=== PATIENT | female | born 1955 | race Hispanic/Latino ===

== ENCOUNTER 2016-06-15 09:33 | Day surgery (SDC) | payer BC ==
[2016-06-15 10:46] LABS: INR 1.29 (0.87-1.13)
[2016-06-15 10:47] LABS: Partial Thromboplastin Time 35.4 Sec. (24.2-36.6)
[2016-06-15 12:19] VITALS: BP 119/82
--- NOTE | 2016-06-15 12:19 | Short Stay Summary ---
Short Stay Documentation Date of service: 06/15/16 - History Principal diagnosis: Cirrhosis Past Medical History: hepatitis, other (cirrhosis) Past Surgical History: Other (multiple prior paracentesis) Social history: no significant social history - Allergies and Medications Current Medications: Allergies Sulfa (Sulfonamide Antibiotics) Allergy (Intermediate, Verified 12/25/13 09:08) Swelling tetanus toxoid, adsorbed Allergy (Intermediate, Verified 12/25/13 09:08) Rash Home Medications Medication Instructions Recorded Confirmed Last Taken Type Multivitamin [Multi Vitamin Daily] 1 each PO QDAY 12/25/13 06/15/16 06/14/16 History Potassium Chloride [Klor-Con 8] 99 mg PO QDAY 10/03/15 06/15/16 06/14/16 History Furosemide [Lasix TAB] 40 mg PO QDAY 10/31/15 06/15/16 06/14/16 History - Physical exam General appearance: no acute distress Integumentary: no rash HEENT: Atraumatic, PERRLA Lungs: Normal air movement Breasts: deferred Gastrointestinal: normal, no tenderness, distended Female Genitourinary: deferred Rectal Exam: deferred Extremities: no ischemia Neurological: Normal gait, Normal speech - Brief post op/procedure progress note Date of procedure: 06/15/16 Pre-op diagnosis: Ascites Post-op diagnosis: same Procedure: US guided paracentesis Anesthesia: local Surgeon: PAULY TORRES Estimated blood loss: minimal Pathology: none Condition: stable - Disposition Condition at discharge: Good Disposition: DISCHARGED TO HOME OR SELFCARE Short Stay Discharge Plan Activity: advance as tolerated Weight Bearing Status: Weight Bear as Tolerated Diet: regular Wound: keep clean and dry, per your surgeon's advice Follow up with: YEN LOVE MD [Primary Care Provider] - 7 Days
--- NOTE | 2016-06-15 12:35 | Ultrasound Report ---
EXAM: ULTRASOUND GUIDED PARACENTESIS CLINICAL INDICATION: HEPATITIS, CIRRHOSIS, ASCITES DATE: 06/15/2016 PROCEDURE: Following an explanation of the risks, benefits and alternatives; written informed consent was obtained. The patient was brought to the ultrasound suite and placed in supine position on the stretcher. Poor quadrant ultrasound of the abdomen was performed and a moderate amount of ascites is present. An appropriate access site was chosen in the left lower quadrant in the patient's left lower abdomen was prepped and draped in usual sterile fashion. 1% lidocaine was used to anesthesia. Under ultrasound guidance, a 5 [place] Yueh needle was advanced into the ascitic fluid. Images were saved to document appropriate positioning of the needle tip. The trocar was removed and a 3.0 L of clear yellow ascitic fluid was aspirated. A sample was sent for laboratory analysis. The Yueh needle was then removed and hemostasis achieved using manual compression. A sterile dressing was applied. The patient tolerated the procedure well. There were no immediate post procedure complications. IMPRESSION: Ultrasound guided paracentesis with 3.0 L of clear yellow ascitic fluid aspirated. Samples were sent for laboratory analysis.
== END 2016-06-15 12:30 | disposition home or self-care (01) ==
LOC: OPU 09:33 → EDSTATUS 12:00 → OPU 12:30
PROVIDERS: ATTEND Radiology Diagnostic Radiology
DX: R18.8 Other ascites (principal); K74.60 Unspecified cirrhosis of liver; K75.9 Inflammatory liver disease, unspecified
CPT/HCPCS: 36415; 49083; 85610; 85730; 87116

== ENCOUNTER 2016-09-21 11:59 | Day surgery (SDC) | payer BC ==
[2016-09-21 13:29] LABS: INR 1.28 (0.87-1.13)
[2016-09-21 13:31] LABS: Partial Thromboplastin Time 35.2 Sec. (24.2-36.6)
--- NOTE | 2016-09-21 14:20 | Short Stay Summary ---
Short Stay Documentation Date of service: 09/21/16 - History Principal diagnosis: Cirrhosis, ascites Past Medical History: hepatitis Past Surgical History: Other (multiple prior paracentesis) Social history: no significant social history, - Allergies and Medications Current Medications: Allergies Sulfa (Sulfonamide Antibiotics) Allergy (Intermediate, Verified 12/25/13 09:08) Swelling tetanus toxoid, adsorbed Allergy (Intermediate, Verified 12/25/13 09:08) Rash Home Medications Medication Instructions Recorded Confirmed Last Taken Type Multivitamin [Multi Vitamin Daily] 1 each PO QDAY 12/25/13 09/21/16 09/20/16 History Furosemide [Lasix TAB] 40 mg PO QDAY 10/31/15 09/21/16 09/20/16 History Spironolactone [Spironolactone] 100 mg PO PRN PRN 07/27/16 09/21/16 09/20/16 History Potassium Gluconate 550 mg PO DAILY 09/21/16 09/21/16 09/20/16 History - Physical exam General appearance: no acute distress Integumentary: no rash HEENT: Atraumatic Lungs: Normal air movement Breasts: deferred Gastrointestinal: normal, no tenderness, distended Female Genitourinary: deferred Rectal Exam: deferred Extremities: no ischemia Neurological: Normal gait, Normal speech - Brief post op/procedure progress note Date of procedure: 09/21/16 Pre-op diagnosis: Ascites Post-op diagnosis: same Procedure: US guided paracentesis Anesthesia: local Surgeon: PAULY TORRES Estimated blood loss: none Specimen disposition: to lab Condition: stable - Disposition Condition at discharge: Good Disposition: DISCHARGED TO HOME OR SELFCARE Short Stay Discharge Plan Activity: advance as tolerated Weight Bearing Status: Weight Bear as Tolerated Diet: regular Wound: keep clean and dry, per your surgeon's advice Follow up with: YEN LOVE MD [Primary Care Provider] - 7 Days
[2016-09-21 14:41] VITALS: BP 115/75
--- NOTE | 2016-09-21 14:54 | Ultrasound Report ---
EXAM: ULTRASOUND GUIDED PARACENTESIS CLINICAL INDICATION: ASCITES DATE: 09/21/2016 PROCEDURE: Following an explanation of the risks, benefits and alternatives; written informed consent was obtained. The patient was brought to the ultrasound suite and placed in supine position on the stretcher. 4 quadrant ultrasound demonstrated a moderate amount of ascites. An appropriate access site was chosen along the midline in the right lower quadrant and the patient's lower abdomen was prepped and draped in the usual sterile fashion. 1% lidocaine was used for anesthesia. Under ultrasound guidance, a 5 Dive[place] CodeEvaleh needle was advanced into the ascitic fluid. The trocar was removed. There was prompt return of clear yellow serous fluid. A total of 4060 mL's of clear yellow ascitic fluid was aspirated. Samples were sent for laboratory analysis. The needle was removed and hemostasis achieved using the manual compression. The patient tolerated the procedure well, there were no immediate post procedure complications IMPRESSION: US guided paracentesis with 4060 ml's of clear yellow fluid aspirated. A sample was sent for laboratory analysis.
== END 2016-09-21 14:45 | disposition home or self-care (01) ==
LOC: OPU 11:59 → EDSTATUS 12:00 → OPU 14:45
PROVIDERS: ATTEND Radiology Diagnostic Radiology
DX: R18.8 Other ascites (principal); K74.60 Unspecified cirrhosis of liver
CPT/HCPCS: 36415; 49083; 85610; 85730; 87116

== ENCOUNTER 2016-12-10 11:13 | Day surgery (SDC) | payer BC ==
[2016-12-10 12:28] LABS: INR 1.27 (0.87-1.13)
[2016-12-10 12:29] LABS: Partial Thromboplastin Time 31.6 Sec. (24.2-36.6)
[2016-12-10 12:34] VITALS: BP 124/71
--- NOTE | 2016-12-10 13:04 | Short Stay Summary ---
Short Stay Documentation Date of service: 12/10/16 - History Principal diagnosis: Ascites Past Medical History: hepatitis, other (recurrant ascites) Past Surgical History: Other (multiple prior paracentesis) Social history: no significant social history - Allergies and Medications Current Medications: Allergies Sulfa (Sulfonamide Antibiotics) Allergy (Intermediate, Verified 12/25/13 09:08) Swelling tetanus toxoid, adsorbed Allergy (Intermediate, Verified 12/25/13 09:08) Rash Home Medications Medication Instructions Recorded Confirmed Last Taken Type Multivitamin [Multi Vitamin Daily] 1 each PO QDAY 12/25/13 12/10/16 12/09/16 History 1 tab Furosemide [Lasix TAB] 40 mg PO QDAY 10/31/15 12/10/16 12/09/16 History 40mg Spironolactone [Spironolactone] 100 mg PO PRN PRN 07/27/16 12/10/16 12/09/16 History 100mg Potassium Gluconate 550 mg PO DAILY 09/21/16 12/10/16 12/09/16 History 550mg - Physical exam General appearance: no acute distress Integumentary: no rash HEENT: Atraumatic Lungs: Normal air movement Breasts: deferred Gastrointestinal: normal, no tenderness, no distended Female Genitourinary: deferred Rectal Exam: deferred Extremities: no ischemia, No edema Neurological: Normal gait, Normal speech - Brief post op/procedure progress note Date of procedure: 12/10/16 Pre-op diagnosis: Ascites Post-op diagnosis: same Procedure: 4 quadrant US of abdomen, only minimal ascites Anesthesia: local Surgeon: PAULY TORRES Estimated blood loss: none Pathology: none Condition: stable - Disposition Condition at discharge: Good Disposition: DC-01 TO HOME OR SELFCARE Short Stay Discharge Plan Activity: advance as tolerated Weight Bearing Status: Weight Bear as Tolerated Diet: regular Wound: keep clean and dry, per your surgeon's advice Follow up with: YEN LOVE MD [Primary Care Provider] - 7 Days
--- NOTE | 2016-12-10 13:05 | Operative Report ---
Operative Report Operative Report: Four quadrant ultrasound of the abdomen was performed which demonstrates only minimal amount of ascites. The abdomen is nontender. A paracentesis was therefore not performed.
--- NOTE | 2016-12-12 07:43 | Ultrasound Report ---
ULTRASOUND ABDOMEN LIMITED History: Ascites. Findings: Transabdominal ultrasound imaging of all 4 quadrants of the abdomen demonstrate small ascites which has decreased significantly since 09/21/16 exam. Impression: Small ascites.
== END 2016-12-10 13:06 | disposition home or self-care (01) ==
LOC: OPU 11:13 → EDSTATUS 12:00 → OPU 13:06
PROVIDERS: ATTEND Radiology Diagnostic Radiology
DX: R18.8 Other ascites (principal); Z86.19 Personal history of other infectious and parasitic diseases; Z98.890 Other specified postprocedural states; Z88.2 Allergy status to sulfonamides; Z88.7 Allergy status to serum and vaccine; Z53.8 Procedure and treatment not carried out for other reasons
CPT/HCPCS: 36415; 49083; 76705; 85610; 85730

== ENCOUNTER 2017-01-25 08:57 | Day surgery (SDC) | payer BC ==
[2017-01-25 10:14] LABS: INR 1.23 (0.87-1.13); Partial Thromboplastin Time 35.9 Sec. (24.2-36.6)
--- NOTE | 2017-01-25 11:52 | History and Physical Report ---
History of Present Illness Date of examination: 01/25/17 Chief complaint: abdominal distention Medications and Allergies Allergies Allergy/AdvReac Type Severity Reaction Status Date / Time Sulfa (Sulfonamide Allergy Intermediate Swelling Verified 12/25/13 09:08 Antibiotics) tetanus toxoid, adsorbed Allergy Intermediate Rash Verified 12/25/13 09:08 Home Medications Medication Instructions Recorded Confirmed Last Taken Type Multivitamin [Multi Vitamin Daily] 1 each PO QDAY 12/25/13 01/25/17 01/24/17 History Furosemide [Lasix TAB] 40 mg PO QDAY 10/31/15 01/25/17 01/24/17 History Spironolactone [Spironolactone] 100 mg PO PRN PRN 07/27/16 01/25/17 01/24/17 History Potassium Gluconate 550 mg PO DAILY 09/21/16 01/25/17 01/24/17 History Exam Vital Signs Temp Pulse Resp BP Pulse Ox 98.9 F 101 H 18 123/77 96 01/25/17 09:36 01/25/17 09:36 01/25/17 09:36 01/25/17 09:36 01/25/17 09:36
--- NOTE | 2017-01-25 11:56 | Procedure Note ---
Date of procedure: 01/25/17 Pre-op diagnosis: ascites Post-op diagnosis: same Procedure: paracentesis Findings: straw colored fluid Anesthesia: local Surgeon: RUBIN SCHMITT Estimated blood loss: none Specimen disposition: discarded Condition: stable Disposition: observation
--- NOTE | 2017-01-25 11:58 | Ultrasound Report ---
Ultrasound-guided paracentesis: Imaging of the abdomen demonstrated a relatively small fluid accumulation predominately in the lower abdomen. An approach site was chosen in the left lower quadrant. The skin was cleansed and draped. 1% lidocaine used for local anesthesia. Through a small skin a 5 Indian [employer] Therapeuticseh catheter was successfully placed into the fluid pocket. A total of 1.9 L of straw-colored fluid was removed without complication. The patient was sent for observation prior to discharge.
[2017-01-25 15:00] VITALS: BP 119/73
== END 2017-01-25 11:55 | disposition home or self-care (01) ==
LOC: CATHLABREC 08:57 → EDSTATUS 09:00 → CATHLABREC 11:55
PROVIDERS: ATTEND Radiology Diagnostic Radiology
DX: R18.8 Other ascites (principal); Z88.2 Allergy status to sulfonamides; Z88.7 Allergy status to serum and vaccine
CPT/HCPCS: 36415; 49083; 85610; 85730

== ENCOUNTER 2017-02-21 10:57 | Day surgery (SDC) | payer BC ==
[2017-02-21 12:57] VITALS: BP 141/79
[2017-02-21] MEDS ORDERED: ALBURX 25% (ALBUMIN) IV PRN (13:08)
--- NOTE | 2017-02-21 13:09 | Short Stay Summary ---
Short Stay Documentation Date of service: 02/21/17 - History Principal diagnosis: ascites - Allergies and Medications Current Medications: Allergies Sulfa (Sulfonamide Antibiotics) Allergy (Intermediate, Verified 12/25/13 09:08) Swelling tetanus toxoid, adsorbed Allergy (Intermediate, Verified 12/25/13 09:08) Rash Home Medications Medication Instructions Recorded Confirmed Last Taken Type Multivitamin [Multi Vitamin Daily] 1 each PO QDAY 12/25/13 02/21/17 02/20/17 History 1 tab Furosemide [Lasix TAB] 40 mg PO QDAY 10/31/15 02/21/17 02/20/17 History 40mg Spironolactone [Spironolactone] 100 mg PO PRN PRN 07/27/16 02/21/17 02/20/17 History 100mg Potassium Gluconate 550 mg PO DAILY 09/21/16 02/21/17 02/20/17 History 550mg - Physical exam General appearance: no acute distress Gastrointestinal: normoactive bowel sounds, distended - Brief post op/procedure progress note Date of procedure: 02/21/17 Pre-op diagnosis: ascites Post-op diagnosis: same Procedure: US paracentesis Anesthesia: local Surgeon: ISREAL SUAREZ Estimated blood loss: none Pathology: none Specimen disposition: discarded Condition: stable - Disposition Condition at discharge: Good Disposition: DC-01 TO HOME OR SELFCARE Short Stay Discharge Plan Follow up with: YEN LOVE MD [Primary Care Provider] - 7 Days
--- NOTE | 2017-02-21 13:58 | Ultrasound Report ---
ULTRASOUND PARACENTESIS History: Ascites. Description of procedure: Informed consent was obtained. Sterile technique was utilized. 1% lidocaine for skin anesthesia. Using ultrasound guidance, a 5 Frisian centesis needle was advanced into the peritoneal space. There was spontaneous return of clear yellow fluid. 2.5 L of fluid was aspirated and discarded. No complications. Impression: Successful ultrasound guided paracentesis as described.
== END 2017-02-21 13:05 | disposition home or self-care (01) ==
LOC: CATHLABREC 10:57 → EDSTATUS 12:00 → CATHLABREC 13:05
PROVIDERS: ATTEND Surgery Vascular Surgery
DX: R18.8 Other ascites (principal)
CPT/HCPCS: 49083

== ENCOUNTER 2017-06-17 10:35 | Day surgery (SDC) | payer BC ==
[2017-06-17 11:13] VITALS: BP 123/78
[2017-06-17 11:54] LABS: INR 1.19 (0.87-1.13)
[2017-06-17 11:55] LABS: Partial Thromboplastin Time 38.8 Sec. (24.2-36.6)
--- NOTE | 2017-06-17 12:59 | Short Stay Summary ---
Short Stay Documentation Date of service: 06/17/17 - History Principal diagnosis: Cirrhosis, ascites Past Medical History: other (Cirrhosis) Past Surgical History: Other (multiple paracentesis) Social history: no significant social history, lives with family - Allergies and Medications Current Medications: Allergies Sulfa (Sulfonamide Antibiotics) Allergy (Intermediate, Verified 12/25/13 09:08) Swelling tetanus toxoid, adsorbed Allergy (Intermediate, Verified 12/25/13 09:08) Rash Home Medications Medication Instructions Recorded Confirmed Last Taken Type Multivitamin [Multi Vitamin Daily] 1 each PO QDAY 12/25/13 06/17/17 06/16/17 History 1 Furosemide [Lasix TAB] 40 mg PO QDAY 10/31/15 06/17/17 06/16/17 History 40mg Spironolactone [Spironolactone] 100 mg PO PRN PRN 07/27/16 06/17/17 06/16/17 History 100mg Potassium Gluconate 550 mg PO DAILY 09/21/16 06/17/17 06/16/17 History 550mg Gabapentin [Neurontin] 300 mg PO QHS 06/17/17 06/17/17 06/16/17 History 300mg - Physical exam General appearance: no acute distress Integumentary: no rash HEENT: Atraumatic Lungs: Normal air movement Breasts: deferred Heart: Regular rate Gastrointestinal: distended, other (ascitic fluid wave) Female Genitourinary: deferred Rectal Exam: deferred Extremities: no ischemia Neurological: Normal gait, Normal speech - Brief post op/procedure progress note Date of procedure: 06/17/17 Pre-op diagnosis: Cirrhosis, ascites Post-op diagnosis: same Procedure: US guided paracentesis Anesthesia: local Surgeon: PAULY TORRES Estimated blood loss: minimal Pathology: none Specimen disposition: to lab - Disposition Condition at discharge: Good Disposition: DC-01 TO HOME OR SELFCARE Short Stay Discharge Plan Activity: advance as tolerated Weight Bearing Status: Weight Bear as Tolerated Diet: regular Wound: keep clean and dry, per your surgeon's advice Follow up with: YEN LOVE MD [Primary Care Provider] - 7 Days
--- NOTE | 2017-06-17 14:05 | Ultrasound Report ---
EXAM: ULTRASOUND-GUIDED PARACENTESIS CLINICAL INDICATION: ASCITES DATE: 06/17/2017 PROCEDURE: Following an explanation of the risks, benefits and alternatives; written informed consent was obtained. The procedure was performed at bedside in the ultrasound suite. Four-quadrant ultrasound of the abdomen demonstrates a moderate amount of ascites. An appropriate access site was chosen one the right lower quadrant. Patient's right lower abdomen was prepped and draped in the usual sterile fashion. 1% lidocaine was used to anesthesia. Under ultrasound guidance, a 5 [place] Yueh needle was advanced into the ascitic fluid. An ultrasound image was obtained to document appropriate positioning. The trocar was removed and a total of 3 L of clear yellow ascitic fluid was aspirated. A sample sent for laboratory analysis. At the completion of the aspiration, the Yueh needle was removed and hemostasis achieved using minimal compression. Sterile dressing was applied. The patient tolerated the procedure well. There were no immediate post procedure complications. IMPRESSION: 1) Ultrasound paracentesis with 3 L of clear yellow ascitic fluid aspirated. Sample was sent for laboratory analysis.
== END 2017-06-17 13:40 | disposition home or self-care (01) ==
LOC: CATHLABREC 10:35 → EDSTATUS 12:00 → CATHLABREC 13:40
PROVIDERS: ATTEND Radiology Diagnostic Radiology
DX: R18.8 Other ascites (principal); K74.60 Unspecified cirrhosis of liver; Z88.2 Allergy status to sulfonamides; Z88.7 Allergy status to serum and vaccine
CPT/HCPCS: 36415; 49083; 85610; 85730; 87116

== ENCOUNTER 2017-07-10 10:09 | Day surgery (SDC) | payer BC ==
--- NOTE | 2017-07-10 11:55 | Short Stay Summary ---
Short Stay Documentation Date of service: 07/10/17 - History Principal diagnosis: Cirrhosis Past Medical History: hepatitis, liver disease Past Surgical History: bowel surgery Social history: no significant social history - Allergies and Medications Current Medications: Allergies Sulfa (Sulfonamide Antibiotics) Allergy (Intermediate, Verified 12/25/13 09:08) Swelling tetanus toxoid, adsorbed Allergy (Intermediate, Verified 12/25/13 09:08) Rash Home Medications Medication Instructions Recorded Confirmed Last Taken Type Multivitamin [Multi Vitamin Daily] 1 each PO QDAY 12/25/13 07/10/17 07/09/17 History Furosemide [Lasix TAB] 40 mg PO QDAY 10/31/15 07/10/17 07/09/17 History Spironolactone [Spironolactone] 100 mg PO DAILY 07/27/16 07/10/17 07/09/17 History Potassium Gluconate 550 mg PO DAILY 09/21/16 07/10/17 07/09/17 History Gabapentin [Neurontin] 300 mg PO QHS 06/17/17 07/10/17 07/09/17 History - Physical exam General appearance: no acute distress Integumentary: no rash HEENT: Atraumatic Lungs: Normal air movement Breasts: deferred Gastrointestinal: normal, distended Female Genitourinary: deferred Extremities: no ischemia Neurological: Normal gait, Normal speech - Brief post op/procedure progress note Date of procedure: 07/10/17 Pre-op diagnosis: Cirrhosis Post-op diagnosis: same Procedure: US guided paracentesis Anesthesia: local Surgeon: PAULY TORRES Estimated blood loss: none Specimen disposition: to lab Condition: stable - Disposition Condition at discharge: Good Disposition: DC-01 TO HOME OR SELFCARE Short Stay Discharge Plan Activity: advance as tolerated Weight Bearing Status: Weight Bear as Tolerated Diet: regular Wound: keep clean and dry, per your surgeon's advice Follow up with: YEN LOVE MD [Primary Care Provider] - 7 Days
[2017-07-10 12:27] VITALS: BP 114/74
--- NOTE | 2017-07-15 09:20 | Operative Report ---
Operative Report Operative Report: See report in PACS
--- NOTE | 2017-07-15 12:50 | Ultrasound Report ---
EXAM: ULTRASOUND GUIDED PARACENTESIS CLINICAL INDICATION: ASCITES DATE: 07/10/2017 PROCEDURE: Following an examination of the risks, benefits and alternatives; written informed consent was obtained. The patient was to the ultrasound suite and for quadrant ultrasound of the abdomen was performed which demonstrated a moderate amount of ascites. An appropriate access site was chosen along the midline in the lower quadrant. Patient's lower abdomen was prepped and draped in the usual sterile fashion. 1% lidocaine was used for anesthesia. Under ultrasound guidance, a 5 [place] Yueh needle was advanced into the ascitic fluid. An initial same to document appropriate positioning. The trocar was removed and a total of 3.1 L of clear yellow ascitic fluid aspirated. A sample sent for laboratory analysis. The Yueh needle was then removed and hemostasis achieved at the skin surface using manual compression. A sterile dressing was applied. The patient tolerated the procedure well. There were no immediate post procedure complications. IMPRESSION: 1) Ultrasound-guided paracentesis with 3.1 L of clear yellow ascitic fluid aspirated. Samples sent for laboratory analysis.
== END 2017-07-10 12:30 | disposition home or self-care (01) ==
LOC: CATHLABREC 10:09 → EDSTATUS 12:00 → CATHLABREC 12:30
PROVIDERS: ATTEND Radiology Diagnostic Radiology
DX: R18.8 Other ascites (principal); K74.60 Unspecified cirrhosis of liver; Z98.890 Other specified postprocedural states; Z88.2 Allergy status to sulfonamides; Z88.7 Allergy status to serum and vaccine; Z79.899 Other long term (current) drug therapy
CPT/HCPCS: 49083; 87116

== ENCOUNTER 2017-08-14 10:02 | Day surgery (SDC) | payer BC ==
--- NOTE | 2017-08-14 10:48 | Short Stay Summary ---
Short Stay Documentation Date of service: 08/14/17 - History Principal diagnosis: Cirrhosis, ascites Past Medical History: hepatitis Past Surgical History: Other (multiple prior paracentesis) Social history: no significant social history - Allergies and Medications Current Medications: Allergies Sulfa (Sulfonamide Antibiotics) Allergy (Intermediate, Verified 12/25/13 09:08) Swelling tetanus toxoid, adsorbed Allergy (Intermediate, Verified 12/25/13 09:08) Rash Home Medications Medication Instructions Recorded Confirmed Last Taken Type Multivitamin [Multi Vitamin Daily] 1 each PO QDAY 12/25/13 08/14/17 08/13/17 History 1 Furosemide [Lasix TAB] 40 mg PO QDAY 10/31/15 08/14/17 08/13/17 History 40mg Spironolactone 100 mg PO DAILY 07/27/16 08/14/17 08/13/17 History 100mg Potassium Gluconate 550 mg PO DAILY 09/21/16 08/14/17 08/13/17 History 550 mg Gabapentin [Neurontin] 300 mg PO QHS 06/17/17 08/14/17 08/13/17 History 300mg - Physical exam General appearance: no acute distress Integumentary: no rash, no growths HEENT: Atraumatic Lungs: Normal air movement Breasts: deferred Heart: Regular rate Gastrointestinal: no tenderness, distended Female Genitourinary: deferred Rectal Exam: deferred Extremities: no ischemia Neurological: Normal gait, Normal speech - Brief post op/procedure progress note Date of procedure: 08/14/17 Pre-op diagnosis: aascites cirrhosis Post-op diagnosis: same Procedure: US guided paracentesis Anesthesia: local Surgeon: PAULY TORRES Estimated blood loss: minimal Specimen disposition: to lab Condition: stable - Disposition Condition at discharge: Good Disposition: DC-01 TO HOME OR SELFCARE Short Stay Discharge Plan Activity: advance as tolerated Weight Bearing Status: Weight Bear as Tolerated Diet: regular Wound: keep clean and dry, per your surgeon's advice Follow up with: YEN LOVE MD [Primary Care Provider] - 7 Days
[2017-08-14 11:16] LABS: INR 1.26 (0.87-1.13)
[2017-08-14 11:17] LABS: Partial Thromboplastin Time 36.7 Sec. (24.2-36.6)
[2017-08-14 12:22] VITALS: BP 117/63
--- NOTE | 2017-08-16 13:27 | Operative Report ---
Operative Report Operative Report: See report in PACS
--- NOTE | 2017-08-19 10:28 | Ultrasound Report ---
EXAM: ULTRASOUND GUIDED PARACENTESIS CLINICAL INDICATION: ASCITES, CIRRHOSIS DATE: 08/14/2017 PROCEDURE: Following an explanation of the risks, benefits and alternatives; written informed consent was obtained. Initial four quadrant ultrasound of the abdomen was performed which demonstrated a moderate amount of ascites. Next a site was chosen in the left lower quadrant and the patient's abdomen prepped and draped in the usual sterile fashion. 1% lidocaine was used for anesthesia. Under ultrasound guidance, a 5 [place] Yueh needle was advanced into the ascitic fluid. Ultrasound image was saved for documentation. The trocar was removed and a total of 3.7 L of clear yellow ascitic fluid was aspirated. A sample was sent for laboratory analysis. The Yueh needle was removed and hemostasis achieved using manual compression. A sterile dressing was applied. The patient tolerated the procedure well. There was no immediate post procedure complications. IMPRESSION: 1) Ultrasound guided paracentesis with 3.7 L of clear yellow ascitic fluid aspirated. A sample was sent for laboratory analysis.
== END 2017-08-14 12:27 | disposition home or self-care (01) ==
LOC: CATHLABREC 10:02 → US 10:02 → EDSTATUS 12:00 → CATHLABREC 12:27
PROVIDERS: ATTEND Radiology Diagnostic Radiology
DX: K70.31 Alcoholic cirrhosis of liver with ascites (principal); Z88.2 Allergy status to sulfonamides; Z88.7 Allergy status to serum and vaccine
CPT/HCPCS: 36415; 49083; 85610; 85730; 87116

== ENCOUNTER 2017-08-28 10:48 | Day surgery (SDC) | payer BC ==
[2017-08-28] MEDS ORDERED: ALBURX 25% (ALBUMIN) IV PRN (13:09)
--- NOTE | 2017-08-28 13:09 | Short Stay Summary ---
Short Stay Documentation Date of service: 08/28/17 - History Principal diagnosis: ascites H&P: obtained from office - Allergies and Medications Current Medications: Allergies Sulfa (Sulfonamide Antibiotics) Allergy (Intermediate, Verified 12/25/13 09:08) Swelling tetanus toxoid, adsorbed Allergy (Intermediate, Verified 12/25/13 09:08) Rash Home Medications Medication Instructions Recorded Confirmed Last Taken Type Multivitamin [Multi Vitamin Daily] 1 each PO HS 12/25/13 08/28/17 08/27/17 History 1 tab Furosemide [Lasix TAB] 40 mg PO QDAY 10/31/15 08/28/17 08/28/17 07:30 History Spironolactone 100 mg PO DAILY 07/27/16 08/28/17 08/28/17 07:30 History 100mg Gabapentin [Neurontin] 300 mg PO QHS 06/17/17 08/28/17 08/27/17 History 300mg Potassium 99 mg PO HS 08/28/17 08/28/17 08/27/17 History 99mg - Physical exam General appearance: no acute distress Gastrointestinal: distended - Brief post op/procedure progress note Date of procedure: 08/28/17 Pre-op diagnosis: ascites Post-op diagnosis: same Procedure: us paracentesis Anesthesia: local Surgeon: ISREAL SUAREZ Estimated blood loss: none Pathology: none Specimen disposition: discarded Condition: stable - Disposition Condition at discharge: Good Disposition: DC-01 TO HOME OR SELFCARE Short Stay Discharge Plan Follow up with: YEN LOVE MD [Primary Care Provider] - 7 Days
[2017-08-28 13:30] VITALS: BP 109/47
--- NOTE | 2017-08-28 14:22 | Ultrasound Report ---
ULTRASOUND PARACENTESIS History: Ascites. Description of procedure: Informed consent was obtained. Sterile technique was utilized. 1% lidocaine for skin anesthesia. Using ultrasound guidance, a 5 Setswana centesis needle was advanced into the left lower quadrant peritoneal space. There was spontaneous return of clear yellow fluid. 3 L of fluid was aspirated and discarded. No complications. Impression: Successful ultrasound-guided paracentesis.
== END 2017-08-28 13:35 | disposition home or self-care (01) ==
LOC: CATHLABREC 10:48 → US 10:48 → EDSTATUS 12:00 → CATHLABREC 13:35
PROVIDERS: ATTEND Radiology Diagnostic Radiology
DX: R18.8 Other ascites (principal); Z88.2 Allergy status to sulfonamides; Z88.7 Allergy status to serum and vaccine
CPT/HCPCS: 49083

== ENCOUNTER 2017-09-18 09:12 | Day surgery (SDC) | payer BC ==
[2017-09-18 09:45] VITALS: BP 138/73
[2017-09-18 10:26] LABS: INR 1.27 (0.87-1.13)
--- NOTE | 2017-09-18 11:08 | Short Stay Summary ---
Short Stay Documentation Date of service: 09/18/17 - History Principal diagnosis: Ascites Past Medical History: hepatitis Past Surgical History: Other (multiple prior paracentesis) Social history: no significant social history - Allergies and Medications Current Medications: Allergies Sulfa (Sulfonamide Antibiotics) Allergy (Intermediate, Verified 12/25/13 09:08) Swelling tetanus toxoid, adsorbed Allergy (Intermediate, Verified 12/25/13 09:08) Rash Home Medications Medication Instructions Recorded Confirmed Last Taken Type Multivitamin [Multi Vitamin Daily] 1 each PO HS 12/25/13 09/18/17 09/17/17 History 1 Furosemide [Lasix TAB] 40 mg PO QDAY 10/31/15 09/18/17 09/17/17 History 40mg Spironolactone 100 mg PO DAILY 07/27/16 09/18/17 09/17/17 History 100mg Gabapentin [Neurontin] 300 mg PO QHS 06/17/17 09/18/17 09/17/17 History 300mg Potassium 99 mg PO HS 08/28/17 09/18/17 09/17/17 History 99mg - Physical exam General appearance: no acute distress Integumentary: no rash HEENT: Atraumatic Lungs: Normal air movement Breasts: deferred Heart: Regular rate Gastrointestinal: distended Female Genitourinary: deferred Rectal Exam: deferred Extremities: no ischemia Neurological: Normal gait, Normal speech - Brief post op/procedure progress note Date of procedure: 09/18/17 Pre-op diagnosis: Ascites Post-op diagnosis: same Procedure: US guided paracentesis Anesthesia: local Surgeon: PAULY TORRES Estimated blood loss: minimal Specimen disposition: to lab Condition: stable - Disposition Condition at discharge: Good Disposition: DC-01 TO HOME OR SELFCARE Short Stay Discharge Plan Activity: advance as tolerated Weight Bearing Status: Weight Bear as Tolerated Diet: regular Wound: keep clean and dry, per your surgeon's advice Follow up with: YEN LOVE MD [Primary Care Provider] - 7 Days
--- NOTE | 2017-09-18 12:09 | Ultrasound Report ---
Exam: Ultrasound-Guided Paracentesis Clinical Indication: Ascites, Hepatitis Date: 09/18/2017 Procedure: Following an explanation of the risks, benefits and alternatives; written informed consent was obtained. The patient was brought to the ultrasound suite and placed in supine position on the gantry. 4 quadrant ultrasound was performed and demonstrated moderate ascites. An appropriate access site was chosen along the right lower quadrant. The patient's abdomen was prepped and draped in usual sterile fashion. 1% lidocaine was used for anesthesia. Under ultrasound guidance, a 5 [place] Yueh needle was advanced into the ascitic fluid. A total of 4.2 L of clear yellow straw-colored fluid was aspirated. A sample was sent for laboratory analysis. The needle was removed and hemostasis achieved using manual compression. A sterile dressing was applied. The patient tolerated the procedure well. There are no immediate post procedure complications. Impression: 1) Ultrasound guided paracentesis with 4.2 L of clear yellow ascitic fluid aspirated. A sample was sent for laboratory analysis.
== END 2017-09-18 11:35 | disposition home or self-care (01) ==
LOC: CATHLABREC 09:12 → US 09:12 → CATHLABREC 11:35
PROVIDERS: ATTEND Radiology Diagnostic Radiology
DX: R18.8 Other ascites (principal); K75.9 Inflammatory liver disease, unspecified
CPT/HCPCS: 36415; 49083; 85610; 85730; 87116

== ENCOUNTER 2017-10-09 09:14 | Day surgery (SDC) | payer BC ==
[2017-10-09 10:04] LABS: Basophils # (Auto) 0.1 K/mm3 (0.0-0.1); Basophils % (Auto) 1.3 % (0.0-1.8); Eosinophils # (Auto) 0.1 K/mm3 (0.0-0.4); Eosinophils % (Auto) 0.9 % (0.0-4.3); Hematocrit 27.9 % (30.3-42.9); Hemoglobin 8.8 gm/dl (10.1-14.3); Lymphocytes # (Auto) 0.7 K/mm3 (1.2-5.4); Lymphocytes % (Auto) 6.8 % (13.4-35.0); Mean Corpuscular HGB Conc 32 % (30-34); Mean Corpuscular Volume 76 fl (79-97); Monocytes % (Auto) 9.5 % (0.0-7.3); Platelet Count 253 K/mm3 (140-440); Red Blood Count 3.66 M/mm3 (3.65-5.03)
[2017-10-09 10:11] LABS: Mean Corpuscular Hemoglobin 24 pg (28-32); Red Cell Distribution Width 21.1 % (13.2-15.2)
[2017-10-09 10:14] LABS: INR 1.28 (0.87-1.13)
--- NOTE | 2017-10-09 11:06 | Short Stay Summary ---
Short Stay Documentation Date of service: 10/09/17 - History Principal diagnosis: Ascites Past Medical History: hepatitis Past Surgical History: Other (multiple paracentesis) Social history: no significant social history - Allergies and Medications Current Medications: Allergies Sulfa (Sulfonamide Antibiotics) Allergy (Intermediate, Verified 12/25/13 09:08) Swelling tetanus toxoid, adsorbed Allergy (Intermediate, Verified 12/25/13 09:08) Rash Home Medications Medication Instructions Recorded Confirmed Last Taken Type Multivitamin [Multi Vitamin Daily] 1 each PO HS 12/25/13 10/09/17 10/08/17 History 1 Furosemide [Lasix TAB] 40 mg PO QDAY 10/31/15 10/09/17 10/08/17 History 40mg Spironolactone 100 mg PO BID 07/27/16 10/09/17 10/08/17 History 100mg Gabapentin [Neurontin] 300 mg PO QHS 06/17/17 10/09/17 10/08/17 History 300mg - Physical exam General appearance: no acute distress Integumentary: no rash, no growths HEENT: Atraumatic Lungs: Normal air movement Breasts: deferred Gastrointestinal: normal, no tenderness, distended Female Genitourinary: deferred Rectal Exam: deferred Extremities: no ischemia Neurological: Normal gait, Normal speech - Brief post op/procedure progress note Date of procedure: 10/09/17 Pre-op diagnosis: ascites Post-op diagnosis: same Procedure: paracentesis Anesthesia: local Surgeon: PAULY TORRES Estimated blood loss: none Specimen disposition: to lab - Disposition Condition at discharge: Good Disposition: DC-01 TO HOME OR SELFCARE Short Stay Discharge Plan Activity: advance as tolerated Weight Bearing Status: Weight Bear as Tolerated Diet: regular Wound: keep clean and dry, per your surgeon's advice Follow up with: YEN LOVE MD [Primary Care Provider] - 7 Days
[2017-10-09 11:37] VITALS: BP 115/61
--- NOTE | 2017-10-09 11:37 | Ultrasound Report ---
EXAM: ULTRASOUND-GUIDED PARACENTESIS CLINICAL INDICATION: ASCITES DATE: 10/09/2017 PROCEDURE: Following maximum duration of the risks, benefits and alternatives; written informed consent was obtained. The patient was brought to the ultrasound suite and placed in supine position on the examination table. 4 quadrant ultrasound of the abdomen was performed inappropriate access site was chosen along the left lower quadrant. Patient abdomen was prepped and draped in the usual sterile fashion. 1% lidocaine was used for anesthesia. Under ultrasound guidance, a 5 [place]ic Yueh needle was advanced into the ascitic fluid. Images were saved to document appropriate needle positioning of the trocar was removed and a total of 3.9 L of clear yellow ascitic fluid was aspirated. Samples were sent for laboratory analysis. The Yueh needle was then withdrawn and hemostasis achieved and the skin surface using manual compression. A sterile dressing was applied. The patient tolerated the procedure well. There were no immediate post procedure complications IMPRESSION: 1) Ultrasound guided paracentesis with 3.9 L of clear yellow ascitic fluid aspirated. A sample was sent for laboratory analysis.
== END 2017-10-09 11:40 | disposition home or self-care (01) ==
LOC: CATHLABREC 09:14
PROVIDERS: ATTEND Radiology Diagnostic Radiology
DX: R18.8 Other ascites (principal); Z88.2 Allergy status to sulfonamides; Z88.7 Allergy status to serum and vaccine; Z79.01 Long term (current) use of anticoagulants
CPT/HCPCS: 36415; 49083; 85025; 85610; 85730; 87116

== ENCOUNTER 2017-12-04 08:56 | Day surgery (SDC) | payer BC ==
[2017-12-04 09:50] LABS: INR 1.3 (0.87-1.13); Partial Thromboplastin Time 38.3 Sec. (24.2-36.6)
--- NOTE | 2017-12-04 10:27 | Short Stay Summary ---
Short Stay Documentation Date of service: 12/04/17 - History Principal diagnosis: ascites Past Medical History: hepatitis, other (recutrrant ascites) Past Surgical History: Other (multiple PARAcentesis) Social history: no significant social history, single - Allergies and Medications Current Medications: Allergies Sulfa (Sulfonamide Antibiotics) Allergy (Intermediate, Verified 12/25/13 09:08) Swelling tetanus toxoid, adsorbed Allergy (Intermediate, Verified 12/25/13 09:08) Rash Home Medications Medication Instructions Recorded Confirmed Last Taken Type Multivitamin [Multi Vitamin Daily] 1 each PO HS 12/25/13 12/04/17 12/03/17 History Furosemide [Lasix TAB] 40 mg PO QDAY 10/31/15 12/04/17 12/03/17 History Spironolactone 200 mg PO DAILY 07/27/16 12/04/17 12/03/17 History Gabapentin [Neurontin] 300 mg PO QHS 06/17/17 12/04/17 12/03/17 History Cyanocobalamin (Vitamin B-12) 1,000 mcg PO DAILY 12/04/17 12/04/17 12/03/17 History [Vitamin B-12] - Physical exam General appearance: no acute distress Integumentary: no rash HEENT: Atraumatic Lungs: Normal air movement Breasts: deferred Heart: Regular rate Gastrointestinal: normal Female Genitourinary: deferred Rectal Exam: deferred Extremities: no ischemia - Brief post op/procedure progress note Date of procedure: 12/04/17 Pre-op diagnosis: ascites Post-op diagnosis: same Procedure: us guided paracentesis Anesthesia: local Surgeon: PAULY TORRES Estimated blood loss: none Specimen disposition: to lab Condition: stable - Disposition Condition at discharge: Good Disposition: DC-01 TO HOME OR SELFCARE Short Stay Discharge Plan Activity: advance as tolerated Weight Bearing Status: Weight Bear as Tolerated Diet: regular Wound: keep clean and dry, per your surgeon's advice Follow up with: YEN LOVE MD [Primary Care Provider] - 7 Days
[2017-12-04 11:01] VITALS: BP 125/71
--- NOTE | 2017-12-09 11:06 | Operative Report ---
Operative Report Operative Report: See report in PACS
--- NOTE | 2017-12-09 14:22 | Ultrasound Report ---
Exam: Ultrasound paracentesis Clinical indication: Ascites Date: 12/04/2017 Procedure: Following an examination of the risks, benefits and alternatives; written informed consent was obtained. The patient was brought to the ultrasound suite for quadrant ultrasound of the abdomen performed. An appropriate pocket was chosen in the left lower quadrant. Patient's lower abdomen was prepped and draped in usual sterile fashion. 1% lidocaine was used for anesthesia. Under ultrasound guidance, a 5 Urdu Yueh needle was advanced into the peritoneal fluid. A total of 3.3 L of clear yellow ascitic fluid was aspirated. Samples sent for laboratory analysis. The Yueh needle was removed and hemostasis achieved at the conclusion of the procedure using manual compression. A sterile dressing was applied. The patient tolerated the procedure well. There were no immediate post procedure complications. Impression: Ultrasound guided paracentesis with 3.3 L of clear yellow ascitic fluid aspirated. A sample was sent for laboratory analysis.
== END 2017-12-04 11:00 | disposition home or self-care (01) ==
LOC: CATHLABREC 08:56 → EDSTATUS 09:00 → CATHLABREC 11:00
PROVIDERS: ATTEND Radiology Diagnostic Radiology
DX: R18.8 Other ascites (principal); Z79.01 Long term (current) use of anticoagulants; Z88.2 Allergy status to sulfonamides; Z88.7 Allergy status to serum and vaccine; Z96.642 Presence of left artificial hip joint; Z98.890 Other specified postprocedural states
CPT/HCPCS: 36415; 49083; 85610; 85730; 87116

== ENCOUNTER 2017-12-18 09:30 | Day surgery (SDC) | payer BC ==
[2017-12-18 10:14] VITALS: BP 156/72
[2017-12-18] MEDS ORDERED: XYLOCAINE 1% 20 mL ONE (10:38)
--- NOTE | 2017-12-18 11:05 | Short Stay Summary ---
Short Stay Documentation Date of service: 12/18/17 - History Principal diagnosis: Ascites Past Medical History: hepatitis Past Surgical History: Other (multiple prior paracentesis) Social history: no significant social history - Allergies and Medications Current Medications: Allergies Sulfa (Sulfonamide Antibiotics) Allergy (Intermediate, Verified 12/25/13 09:08) Swelling tetanus toxoid, adsorbed Allergy (Intermediate, Verified 12/25/13 09:08) Rash Home Medications Medication Instructions Recorded Confirmed Last Taken Type Multivitamin [Multi Vitamin Daily] 1 each PO HS 12/25/13 12/18/17 12/17/17 History 1 Furosemide [Lasix TAB] 40 mg PO QDAY 10/31/15 12/18/17 12/17/17 History 40mg Spironolactone 200 mg PO DAILY 07/27/16 12/18/17 12/17/17 History 200mg Gabapentin [Neurontin] 300 mg PO QHS 06/17/17 12/18/17 12/17/17 History 300mg Cyanocobalamin (Vitamin B-12) 1,000 mcg PO DAILY 12/04/17 12/18/17 12/17/17 History [Vitamin B-12] 1000mcg Aspirin [Adult Low Dose Aspirin EC] 81 mg PO BID 12/18/17 12/18/17 12/18/17 History 81mg - Physical exam General appearance: no acute distress Integumentary: no rash, no growths HEENT: Atraumatic Lungs: Normal air movement Breasts: deferred Heart: Regular rate Gastrointestinal: normal, no tenderness, distended Female Genitourinary: deferred Rectal Exam: deferred Extremities: no ischemia Neurological: Normal gait, Normal speech - Brief post op/procedure progress note Date of procedure: 12/18/17 Pre-op diagnosis: ascites Post-op diagnosis: same Procedure: us guided paracentesis Anesthesia: local Surgeon: PAULY TORRES Estimated blood loss: none Pathology: none Specimen disposition: to lab Condition: stable - Disposition Condition at discharge: Good Disposition: - TO HOME OR SELFCARE Short Stay Discharge Plan Activity: advance as tolerated Weight Bearing Status: Weight Bear as Tolerated Diet: regular Wound: keep clean and dry, per your surgeon's advice Follow up with: YEN LOVE MD [Primary Care Provider] - 7 Days
--- NOTE | 2017-12-18 14:24 | Ultrasound Report ---
Exam: Ultrasound-guided paracentesis Clinical indication: Ascites Date:12/18/2017 Procedure: Following the examination of the risks, benefits and alternatives; written informed consent was obtained. The patient was brought to the ultrasound suite placed in supine position on the gantry. Four quadrant ultrasound of the abdomen was performed and a moderate amount of ascites was identified. An appropriate access site was chosen in the right lower quadrant. The lower abdomen was prepped and draped in the usual sterile fashion. 1% lidocaine was used for anesthesia. Under ultrasound guidance, a 5 [place] Yueh needle was advanced into the ascitic fluid. There was prompt return of clear yellow serous fluid. The trocar was removed and a total of 3.1 L of clear yellow ascitic fluid aspirated. A sample was sent for laboratory analysis. The needle was removed and hemostasis achieved using manual compression. Sterile dressing was applied. The patient tolerated the procedure well. There were no immediate post procedure complications. Impression: 1) Ultrasound guided paracentesis with 3.1 L of clear yellow ascitic fluid aspirated. A sample was sent for laboratory analysis.
== END 2017-12-18 11:40 | disposition home or self-care (01) ==
LOC: CATHLABREC 09:30 → EDSTATUS 12:00
PROVIDERS: ATTEND Radiology Diagnostic Radiology
DX: R18.8 Other ascites (principal); Z88.2 Allergy status to sulfonamides; Z88.7 Allergy status to serum and vaccine; Z86.19 Personal history of other infectious and parasitic diseases
CPT/HCPCS: 49083; 88112; 88305

== ENCOUNTER 2018-02-05 09:03 | Day surgery (SDC) | payer BC ==
[2018-02-05 10:06] LABS: INR 1.32 (0.87-1.13)
[2018-02-05 10:07] LABS: Partial Thromboplastin Time 38.8 Sec. (24.2-36.6)
[2018-02-05] MEDS ORDERED: XYLOCAINE 1% 20 mL ONE (10:43)
--- NOTE | 2018-02-05 11:22 | Short Stay Summary ---
Short Stay Documentation Date of service: 02/05/18 - History Principal diagnosis: ascites Past Medical History: liver disease Past Surgical History: bowel surgery, Other (multiple prior paracenteses) Social history: no significant social history - Allergies and Medications Current Medications: Allergies Sulfa (Sulfonamide Antibiotics) Allergy (Intermediate, Verified 12/25/13 09:08) Swelling tetanus toxoid, adsorbed Allergy (Intermediate, Verified 12/25/13 09:08) Rash Home Medications Medication Instructions Recorded Confirmed Last Taken Type Furosemide [Lasix TAB] 40 mg PO QDAY 10/31/15 02/05/18 02/04/18 History 40mg Spironolactone 200 mg PO DAILY 07/27/16 02/05/18 02/04/18 History 200mg Gabapentin [Neurontin] 300 mg PO QHS 06/17/17 02/05/18 02/04/18 History 300mg - Physical exam General appearance: no acute distress Lungs: Normal air movement Breasts: deferred Gastrointestinal: normal Female Genitourinary: deferred Rectal Exam: deferred Extremities: no ischemia - Brief post op/procedure progress note Date of procedure: 02/05/18 Pre-op diagnosis: ascites Post-op diagnosis: same Procedure: Ultrasound guided paracentesis Anesthesia: local Surgeon: PAULY TORRES Estimated blood loss: none Specimen disposition: to lab Condition: stable - Disposition Condition at discharge: Good Disposition: DC-01 TO HOME OR SELFCARE Short Stay Discharge Plan Activity: advance as tolerated Weight Bearing Status: Weight Bear as Tolerated Diet: regular Wound: keep clean and dry, per your surgeon's advice Follow up with: YEN LOVE MD [Primary Care Provider] - 7 Days
[2018-02-05 11:55] VITALS: BP 117/67
--- NOTE | 2018-02-05 15:36 | Ultrasound Report ---
Exam: Ultrasound-guided paracentesis Clinical indication: Ascites Date: 02/05/2018 Procedure: Following the administration of the risks, benefits and alternatives; written informed consent was obtained. The patient to the ultrasound suite for one ultrasound of the abdomen was performed. A moderate amount of ascites is identified. Appropriate access site was chosen right lower quadrant and the abdomen prepped and draped in the usual sterile fashion. 1% lidocaine was used for anesthesia. Under ultrasound guidance, a 5 [place] Yueh needle was advanced into the ascitic fluid. An image was saved to document appropriate positioning of the needle. The trocar was removed and a total of 5.4 L of clear yellow ascitic fluid was aspirated. Samples sent for laboratory analysis. The Yueh needle was removed and hemostasis achieved using manual compression. A sterile dressing was applied. The patient tolerated the procedure well. There were no immediate post procedure complications. Impression: Ultrasound guided paracentesis with 5.4 L of clear yellow ascitic fluid aspirated. A sample was sent for laboratory analysis.
== END 2018-02-05 12:10 | disposition home or self-care (01) ==
LOC: CATHLABREC 09:03
PROVIDERS: ATTEND Radiology Diagnostic Radiology
DX: K70.31 Alcoholic cirrhosis of liver with ascites (principal); I10 Essential (primary) hypertension; Z88.2 Allergy status to sulfonamides; Z88.8 Allergy status to other drugs, medicaments and biological substances; Z79.899 Other long term (current) drug therapy; G62.9 Polyneuropathy, unspecified; Z98.890 Other specified postprocedural states; Z72.89 Other problems related to lifestyle; Z82.61 Family history of arthritis; Z83.49 Family history of other endocrine, nutritional and metabolic diseases; Z80.8 Family history of malignant neoplasm of other organs or systems; Z80.51 Family history of malignant neoplasm of kidney; Z82.49 Family history of ischemic heart disease and other diseases of the circulatory system
CPT/HCPCS: 36415; 49083; 85610; 85730; 87116

== ENCOUNTER 2018-07-02 10:39 | Day surgery (SDC) | payer BC ==
[2018-07-02 11:27] VITALS: BP 117/58
[2018-07-02] MEDS ORDERED: XYLOCAINE 1% 20 mL ONE (12:09)
--- NOTE | 2018-07-02 13:03 | Short Stay Summary ---
Short Stay Documentation Date of service: 07/02/18 - History Principal diagnosis: hepatitis C, ascites Past Medical History: hepatitis Past Surgical History: Other (prior paracenteses) Social history: no significant social history - Allergies and Medications Current Medications: Allergies Sulfa (Sulfonamide Antibiotics) Allergy (Intermediate, Verified 12/25/13 09:08) Swelling tetanus toxoid, adsorbed Allergy (Intermediate, Verified 12/25/13 09:08) Rash Home Medications Medication Instructions Recorded Confirmed Last Taken Type Furosemide [Lasix TAB] 40 mg PO QDAY 10/31/15 07/02/18 07/01/18 History 40mg Spironolactone 200 mg PO DAILY 07/27/16 07/02/18 07/02/18 History 200mg Gabapentin [Neurontin] 300 mg PO QHS 06/17/17 07/02/18 07/01/18 History 300mg - Physical exam General appearance: no acute distress HEENT: Atraumatic Lungs: Normal air movement Breasts: deferred Gastrointestinal: normal, distended (minimally) Female Genitourinary: deferred Rectal Exam: deferred Extremities: no ischemia Neurological: Normal gait - Brief post op/procedure progress note Date of procedure: 07/02/18 Pre-op diagnosis: ascites Post-op diagnosis: same Procedure: 4 quadrant ultasound of the abdomen Anesthesia: none Surgeon: PAULY TORRES Estimated blood loss: none Pathology: none - Disposition Condition at discharge: Good Disposition: DC-01 TO HOME OR SELFCARE Short Stay Discharge Plan Activity: advance as tolerated Weight Bearing Status: Weight Bear as Tolerated Diet: regular Follow up with: YEN LOVE MD [Primary Care Provider] - 7 Days
--- NOTE | 2018-07-23 08:45 | Ultrasound Report ---
FINAL REPORT EXAM: US ABDOMEN LIMITED HISTORY: ascites TECHNIQUE: Limited abdominal ultrasound for ascites evaluation. PRIORS: None. FINDINGS: There is a small amount of ascites seen. No paracentesis performed. Abdominal structures not evaluate d. IMPRESSION: Small amount of ascites.
== END 2018-07-02 13:10 | disposition home or self-care (01) ==
LOC: CATHLABREC 10:39 → EDSTATUS 12:00 → CATHLABREC 13:10
PROVIDERS: ATTEND Radiology Diagnostic Radiology
DX: K70.31 Alcoholic cirrhosis of liver with ascites (principal); I10 Essential (primary) hypertension; E11.40 Type 2 diabetes mellitus with diabetic neuropathy, unspecified; M16.12 Unilateral primary osteoarthritis, left hip; Z53.8 Procedure and treatment not carried out for other reasons; Z96.642 Presence of left artificial hip joint; Z88.2 Allergy status to sulfonamides; Z88.8 Allergy status to other drugs, medicaments and biological substances; Z79.899 Other long term (current) drug therapy; Z72.89 Other problems related to lifestyle; Z98.890 Other specified postprocedural states; Z80.8 Family history of malignant neoplasm of other organs or systems; Z82.49 Family history of ischemic heart disease and other diseases of the circulatory system; Z82.61 Family history of arthritis
CPT/HCPCS: 76705

== ENCOUNTER 2018-08-11 10:56 | Day surgery (SDC) | payer BC ==
[2018-08-11 12:16] LABS: INR 1.28 (0.87-1.13)
[2018-08-11 12:17] LABS: Partial Thromboplastin Time 33.2 Sec. (24.2-36.6)
[2018-08-11] MEDS ORDERED: XYLOCAINE 1% 20 mL ONE (13:11)
--- NOTE | 2018-08-11 13:53 | Short Stay Summary ---
Short Stay Documentation Date of service: 08/11/18 - History Principal diagnosis: ascites Past Medical History: hepatitis Past Surgical History: Other (multiple paracentesis) Social history: no significant social history - Allergies and Medications Current Medications: Allergies Sulfa (Sulfonamide Antibiotics) Allergy (Intermediate, Verified 12/25/13 09:08) Swelling tetanus toxoid, adsorbed Allergy (Intermediate, Verified 12/25/13 09:08) Rash Home Medications Medication Instructions Recorded Confirmed Last Taken Type Furosemide [Lasix TAB] 40 mg PO QDAY 10/31/15 08/11/18 08/08/18 History 40mg Spironolactone 200 mg PO DAILY 07/27/16 08/11/18 08/08/18 History 200mg Gabapentin [Neurontin] 300 mg PO QHS 06/17/17 08/11/18 08/10/18 History 300mg - Physical exam General appearance: no acute distress Integumentary: no rash, no growths HEENT: EOMI Lungs: Normal air movement Breasts: deferred Heart: Regular rate Gastrointestinal: no tenderness, distended Female Genitourinary: deferred Rectal Exam: deferred Extremities: no ischemia Neurological: Normal gait, Normal speech - Brief post op/procedure progress note Date of procedure: 08/11/18 Pre-op diagnosis: ascites Post-op diagnosis: same Procedure: us guided paracentesis Anesthesia: local Surgeon: PAULY TORRES Estimated blood loss: none Specimen disposition: to lab Condition: stable - Disposition Condition at discharge: Good Disposition: DC-01 TO HOME OR SELFCARE Short Stay Discharge Plan Activity: advance as tolerated Weight Bearing Status: Weight Bear as Tolerated Diet: regular Wound: keep clean and dry, per your surgeon's advice Follow up with: MILAN IRWIN MD [Primary Care Provider] - 7 Days
[2018-08-11 15:00] VITALS: BP 111/52
--- NOTE | 2018-08-11 16:37 | Ultrasound Report ---
Exam: Ultrasound guided paracentesis Clinical indication: Ascites Date: 08/11/2018 Procedure: Following an expiration of the risks, benefits and alternatives; written informed consent was obtained. The patient was brought to the ultrasound suite and placed in spine position on the stretcher. 4 quadrant ultrasound of the abdomen demonstrated moderate to large amount of ascites. Appropriate access site was chosen in the right lower quadrant in the patient's abdomen prepped and draped in usual fashion. 1% lidocaine was used for anesthesia. Under ultrasound guidance, a 5 [place] Yueh needle was advanced into the ascitic fluid. The trocar was removed and a total of 4.6 L of clear yellow ascitic fluid was aspirated. Samples sent for laboratory analysis. The Yueh needle was removed and hemostasis achieved using a compression. A sterile dressing was applied. The patient tolerated the procedure well. There were no immediate post procedure complications. Ventricle ultrasound guided paracentesis with 4.6 L of clear yellow ascitic fluid aspirated. A sample was sent for laboratory analysis.
== END 2018-08-11 14:30 | disposition home or self-care (01) ==
LOC: CATHLABREC 10:56 → EDSTATUS 12:00 → CATHLABREC 14:30
PROVIDERS: ATTEND Family Medicine
DX: K70.30 Alcoholic cirrhosis of liver without ascites (principal); I10 Essential (primary) hypertension; M19.90 Unspecified osteoarthritis, unspecified site; G62.9 Polyneuropathy, unspecified; Z96.642 Presence of left artificial hip joint; Z72.89 Other problems related to lifestyle; Z80.8 Family history of malignant neoplasm of other organs or systems; Z82.61 Family history of arthritis; Z84.1 Family history of disorders of kidney and ureter; Z79.899 Other long term (current) drug therapy; Z88.2 Allergy status to sulfonamides; Z98.890 Other specified postprocedural states; Z88.8 Allergy status to other drugs, medicaments and biological substances; Z82.49 Family history of ischemic heart disease and other diseases of the circulatory system
CPT/HCPCS: 36415; 49083; 85610; 85730; 87116

== ENCOUNTER 2018-08-20 07:42 | Inpatient (IN) | payer BC ==
[2018-08-20 10:18] LABS: Hematocrit 28.4 % (30.3-42.9); Hemoglobin 9.1 gm/dl (10.1-14.3); Mean Corpuscular HGB Conc 32 % (30-34); Mean Corpuscular Volume 83 fl (79-97); Platelet Count 295 K/mm3 (140-440); Red Blood Count 3.42 M/mm3 (3.65-5.03)
[2018-08-20 10:19] LABS: Red Cell Distribution Width 26.2 % (13.2-15.2)
[2018-08-20 10:22] LABS: INR 1.32 (0.87-1.13)
[2018-08-20 10:23] LABS: Partial Thromboplastin Time 37.8 Sec. (24.2-36.6)
[2018-08-20 10:28] LABS: Albumin 3.1 g/dL (3.9-5); Calcium 8.6 mg/dL (8.4-10.2)
--- NOTE | 2018-08-20 10:36 | Emergency Department Report ---
ED General Adult HPI - General Chief complaint: Abdominal Pain Stated complaint: paracentesis Time Seen by Provider: 08/20/18 09:09 Source: patient Mode of arrival: Ambulatory Limitations: No Limitations - History of Present Illness Initial comments: The patient presents to emergency department with a chief complaint of abdominal swelling. 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 The patient states her last paracentesis was on August 11 oh prior to that it was 6 months ago. Patient states she called her physician was Dr. Lees patient was instructed to come to the emergency department. Patient complains of abdominal tightness and shortness of breath with walking due to the girth of her abdomen -: Gradual Location: abdomen Severity scale (0 -10): 0 Consistency: constant Improves with: rest Worsens with: movement Associated Symptoms: denies other symptoms Treatments Prior to Arrival: none - Related Data Home Medications Medication Instructions Recorded Confirmed Last Taken Furosemide [Lasix TAB] 40 mg PO QDAY 10/31/15 08/11/18 08/08/18 40mg Spironolactone 200 mg PO DAILY 07/27/16 08/11/18 08/08/18 200mg Gabapentin [Neurontin] 300 mg PO QHS 06/17/17 08/11/18 08/10/18 300mg Allergies Allergy/AdvReac Type Severity Reaction Status Date / Time Sulfa (Sulfonamide Allergy Intermediate Swelling Verified 12/25/13 09:08 Antibiotics) tetanus toxoid, adsorbed Allergy Intermediate Rash Verified 12/25/13 09:08 ED Review of Systems ROS: Stated complaint: paracentesis Other details as noted in HPI Comment: All other systems reviewed and negative Constitutional: denies: chills, fever Eyes: denies: eye pain, eye discharge, vision change ENT: denies: ear pain, throat pain Respiratory: denies: cough, shortness of breath, wheezing Cardiovascular: denies: chest pain, palpitations Endocrine: no symptoms reported Gastrointestinal: denies: abdominal pain, nausea, diarrhea Genitourinary: denies: urgency, dysuria, discharge Musculoskeletal: denies: back pain, joint swelling, arthralgia Skin: denies: rash, lesions Neurological: denies: headache, weakness, paresthesias Psychiatric: denies: anxiety, depression Hematological/Lymphatic: denies: easy bleeding, easy bruising ED Past Medical Hx - Past Medical History Hx Hypertension: Yes (1999) Hx Liver Disease: Yes (Liver Cirrhosis) Hx Arthritis: Yes (left hip, for Left hip replacement 04-01-15) Hx HIV: No - Surgical History Past Surgical History?: Yes Additional Surgical History: Two hip replacements 2014, 2017 - Social History Smoking Status: Never Smoker Substance Use Type: None - Medications Home Medications: Home Medications Medication Instructions Recorded Confirmed Last Taken Type Furosemide [Lasix TAB] 40 mg PO QDAY 10/31/15 08/11/18 08/08/18 History 40mg Spironolactone 200 mg PO DAILY 07/27/16 08/11/18 08/08/18 History 200mg Gabapentin [Neurontin] 300 mg PO QHS 06/17/17 08/11/18 08/10/18 History 300mg ED Physical Exam - General Limitations: No Limitations General appearance: alert, in no apparent distress - Head Head exam: Present: atraumatic, normocephalic - Eye Eye exam: Present: normal appearance, PERRL, EOMI - ENT ENT exam: Present: mucous membranes moist - Neck Neck exam: Present: normal inspection - Respiratory Respiratory exam: Present: normal lung sounds bilaterally. Absent: respiratory distress, wheezes, rales, rhonchi - Cardiovascular Cardiovascular Exam: Present: regular rate, normal rhythm. Absent: systolic murmur, diastolic murmur, rubs, gallop - GI/Abdominal GI/Abdominal exam: Present: soft, distended, normal bowel sounds, other (positive fluid wave). Absent: tenderness - Extremities Exam Extremities exam: Present: normal inspection - Back Exam Back exam: Present: normal inspection - Neurological Exam Neurological exam: Present: alert, oriented X3 - Psychiatric Psychiatric exam: Present: normal affect, normal mood - Skin Skin exam: Present: warm, dry, intact, normal color. Absent: rash ED Course Vital Signs 08/20/18 08/20/18 08/20/18 07:51 09:21 09:30 Temperature 97.9 F 98.6 F Pulse Rate 110 H 114 H Respiratory 18 20 Rate Blood Pressure 152/84 141/76 O2 Sat by Pulse 98 99 97 Oximetry 08/20/18 10:00 Temperature Pulse Rate Respiratory Rate Blood Pressure 142/79 O2 Sat by Pulse 96 Oximetry ED Medical Decision Making - Lab Data Result diagrams: 08/20/18 09:37 08/20/18 09:37 Lab Results 08/20/18 08/20/18 08/20/18 Range/Units 09:37 09:37 09:37 WBC 9.7 (4.5-11.0) K/mm3 RBC 3.42 L (3.65-5.03) M/mm3 Hgb 9.1 L (10.1-14.3) gm/dl Hct 28.4 L (30.3-42.9) % MCV 83 (79-97) fl MCH 27 L (28-32) pg MCHC 32 (30-34) % RDW 26.2 H (13.2-15.2) % Plt Count 295 (140-440) K/mm3 Lymph % (Auto) Educational Guidance Counselor Dawson % (Auto) Educational Guidance Counselor Eos % (Auto) Educational Guidance Counselor Baso % (Auto) Educational Guidance Counselor Lymph # Educational Guidance Counselor Dawson # Educational Guidance Counselor Eos # Educational Guidance Counselor Baso # Educational Guidance Counselor Seg Neutrophils % Educational Guidance Counselor Seg Neutrophils # Educational Guidance Counselor PT 17.2 H (12.2-14.9) Sec. INR 1.32 H (0.87-1.13) APTT 37.8 H (24.2-36.6) Sec. Sodium 127 L (137-145) mmol/L Potassium 3.6 (3.6-5.0) mmol/L Chloride 90.7 L (98-107) mmol/L Carbon Dioxide 21 L (22-30) mmol/L Anion Gap 19 mmol/L BUN 4 L (7-17) mg/dL Creatinine 1.1 (0.7-1.2) mg/dL Estimated GFR 50 ml/min BUN/Creatinine Ratio 4 % Glucose 131 H (65-100) mg/dL Calcium 8.6 (8.4-10.2) mg/dL Total Bilirubin 2.60 H (0.1-1.2) mg/dL AST 86 H (5-40) units/L ALT 8 (7-56) units/L Alkaline Phosphatase 348 H (35-129) units/L Total Protein 8.1 (6.3-8.2) g/dL Albumin 3.1 L (3.9-5) g/dL Albumin/Globulin Ratio 0.6 % - Medical Decision Making Results and plan of care discussed with patient Critical care attestation.: If time is entered above; I have spent that time in minutes in the direct care of this critically ill patient, excluding procedure time. ED Disposition Clinical Impression: Ascites Disposition: DC-09 OP ADMIT IP TO THIS HOSP Is pt being admited?: Yes Does the pt Need Aspirin: No Condition: Fair Referrals: KARIME FLORES MD [Primary Care Provider] - 3-5 Days
--- NOTE | 2018-08-20 10:44 | History and Physical Report ---
History of Present Illness Date of examination: 08/20/18 Date of admission: 08/20/18 Chief complaint: Worsening ascites History of present illness: Patient with history of cirrhosis liver secondary to alcohol worsening ascites and multiple episodes of paracentesis was sent by Dr. Argueta to the emergency room for possible abdominal paracentesis Past History Past Medical History: arthritis, hypertension, other (cirrhosis liver) Past Surgical History: total hip replacement Social history: denies: smoking, alcohol abuse Family history: hypertension Medications and Allergies Allergies Allergy/AdvReac Type Severity Reaction Status Date / Time Sulfa (Sulfonamide Allergy Intermediate Swelling Verified 12/25/13 09:08 Antibiotics) tetanus toxoid, adsorbed Allergy Intermediate Rash Verified 12/25/13 09:08 Home Medications Medication Instructions Recorded Confirmed Last Taken Type Furosemide [Lasix TAB] 40 mg PO QDAY 10/31/15 08/20/18 08/19/18 History Spironolactone 100 mg PO DAILY 07/27/16 08/20/18 08/19/18 History Gabapentin [Neurontin] 300 mg PO QHS 06/17/17 08/20/18 08/19/18 History Active Meds: Active Medications Gabapentin (Neurontin) 300 mg PO QHS ANGELINA Miscellaneous Medication (Spironolactone [Spironolactone]) 200 mg PO DAILY ANGELINA Review of Systems Constitutional: weight gain, no weight loss Cardiovascular: no chest pain, no orthopnea, no palpitations Respiratory: no cough, no cough with sputum Gastrointestinal: other (worsening ascites), no nausea, no vomiting Integumentary: no rash, no lesions Neurological: weakness, no parathesias, no numbness Psychiatric: no anxiety, no depression Endocrine: no cold intolerance, no heat intolerance Hematologic/Lymphatic: no easy bruising, no easy bleeding Allergic/Immunologic: no urticaria, no allergic rhinitis Exam - Constitutional Vitals: Temp Pulse Resp BP Pulse Ox 98.6 F 114 H 20 150/84 98 08/20/18 09:30 08/20/18 09:30 08/20/18 09:30 08/20/18 10:30 08/20/18 10:30 General appearance: Present: mild distress, well-nourished, obese - Neck Neck: Present: supple, normal ROM - Respiratory Respiratory effort: normal Respiratory: bilateral: diminished, rales, negative: rhonchi, wheezing - Cardiovascular Rhythm: regular Heart Sounds: Present: S1 & S2 - Extremities Extremities: no ischemia Extremity abnormal: edema - Abdominal General gastrointestinal: Present: soft, non-tender, normal bowel sounds, other (ascites) - Integumentary Integumentary: Present: clear, warm - Musculoskeletal Musculoskeletal: strength equal bilaterally, generalized weakness - Psychiatric Psychiatric: appropriate mood/affect, cooperative - Neurologic Neurologic: moves all extremities Results - Labs CBC & Chem 7: 08/20/18 09:37 08/20/18 09:37 Labs: Abnormal lab results 08/20/18 08/20/18 08/20/18 Range/Units 09:37 09:37 09:37 RBC 3.42 L (3.65-5.03) M/mm3 Hgb 9.1 L (10.1-14.3) gm/dl Hct 28.4 L (30.3-42.9) % MCH 27 L (28-32) pg RDW 26.2 H (13.2-15.2) % PT 17.2 H (12.2-14.9) Sec. INR 1.32 H (0.87-1.13) APTT 37.8 H (24.2-36.6) Sec. Sodium 127 L (137-145) mmol/L Chloride 90.7 L (98-107) mmol/L Carbon Dioxide 21 L (22-30) mmol/L BUN 4 L (7-17) mg/dL Glucose 131 H (65-100) mg/dL Total Bilirubin 2.60 H (0.1-1.2) mg/dL AST 108 H (5-40) units/L Alkaline Phosphatase 348 H (35-129) units/L Albumin 3.1 L (3.9-5) g/dL Assessment and Plan Assessment; --Worsening ascites --Shortness of breath --Cirrhosis liver --Hypertension --Arthritis Plan; Admit to medical floor Ultrasound-guided paracentesis Resume home medications Supportive care DVT prophylaxis
[2018-08-20 11:43] LABS: Basophils % (Manual) 0 % (0.0-1.8); Total Cells Counted 100
[2018-08-20 11:50] LABS: Anisocytosis 2+; Platelet Estimate Consistent w Auto; Poikilocytosis 1+; Target Cells 1+
[2018-08-20] MEDS ORDERED: LASIX IV SCH (12:00)
[2018-08-20] MEDS ORDERED: ALDACTONE PO SCH (12:00)
[2018-08-20] MEDS ORDERED: XYLOCAINE 1% 20 mL ONE (14:51)
--- NOTE | 2018-08-20 15:14 | Procedure Note ---
Date of procedure: 08/20/18 Pre-op diagnosis: ascites Post-op diagnosis: same Procedure: US paracentesis Findings: large ascites Anesthesia: local Surgeon: IRSEAL SUAREZ Estimated blood loss: none Pathology: none Specimen disposition: discarded Condition: stable Disposition: floor
[2018-08-20 15:59] VITALS: BP 179/72
--- NOTE | 2018-08-20 16:56 | Discharge Summary ---
Providers - Providers Date of Admission: 08/20/18 10:36 Date of discharge: 08/20/18 Attending physician: REHANA PIERRE 08/20/18 10:45 Consult to Physician [CONS] Routine Comment: Consulting Provider: PAULY TORRES Physician Instructions: Reason For Exam: Ascitis/ US guided Paracentesis [facility] Reason for admission: worsening ascites Condition: Fair Procedures: Ultrasound-guided paracentesis with removal of 5.7 L of peritoneal fluid Hospital course: 60-year-old female patient with history of cirrhosis liver, massive ascites, history of repeated abdominal paracentesis Was admitted for ultrasound-guided paracentesis Patient was evaluated and admitted symptomatically managed Scheduled for ultrasound-guided paracentesis and removal of 5.7 L Of cleared a little bit unusual fluid which was discarded The patient's symptoms significantly improved Plan patient is being discharged however Patient did not want to stay and left AGAINST MEDICAL ADVICE Please refer to medical records for all the other details Disposition: DC-07 LEFT AGAINST MED ADVICE Time spent for discharge: 32 min Core Measure Documentation - Palliative Care Palliative Care/ Comfort Measures: Not Applicable - Core Measures Any of the following diagnoses?: none Exam - Physical Exam Narrative exam: Patient left AMA - Constitutional Vitals: Temp Pulse Resp BP Pulse Ox 98.3 F 125 H 19 179/72 96 08/20/18 15:58 08/20/18 15:58 08/20/18 15:58 08/20/18 15:58 08/20/18 15:58 Plan Follow up with: KARIME FLORES MD [Primary Care Provider] - 3-5 Days Forms: AMA Form
[2018-08-20] MEDS ORDERED: NEURONTIN PO SCH (22:00)
[2018-08-20] MEDS ORDERED: LOVENOX SUB-Q SCH (22:00)
--- NOTE | 2018-08-21 08:21 | Ultrasound Report ---
ULTRASOUND PARACENTESIS HISTORY: Ascites. DESCRIPTION OF PROCEDURE: A time out was performed. Informed consent was obtained. Sterile technique was utilized. Using ultrasound guidance, a 5 Hebrew centesis needle was advanced into the peritoneal space. There was spontaneous return of clear yellow fluid. 5.7 L of fluid was drained. 120 cc of fluid was sent to laboratory for analysis. No complications. IMPRESSION: Successful ultrasound-guided paracentesis.
[2018-08-21] MEDS ORDERED: SPIRONOLACTONE 200 MG PO SCH (10:00)
[2018-08-21] MEDS ORDERED: PROTONIX IV SCH (10:00)
== END 2018-08-20 16:30 | disposition left against medical advice (07) | DRG 434 ==
LOC: ED 07:42 → 3A 10:36
PROVIDERS: ADMIT Internal Medicine; ATTEND Internal Medicine
PROC: 0W9G3ZZ Drainage of Peritoneal Cavity, Percutaneous Approach (ICD-10-PCS; principal; 2018-08-20)
DX: K70.31 Alcoholic cirrhosis of liver with ascites (principal); I10 Essential (primary) hypertension; Z96.652 Presence of left artificial knee joint; Z88.2 Allergy status to sulfonamides; Z88.7 Allergy status to serum and vaccine; Z53.21 Procedure and treatment not carried out due to patient leaving prior to being seen by health care provider
CPT/HCPCS: 36415; 49083; 80053; 85007; 85025; 85610; 85730; G0378; J1940

== ENCOUNTER 2018-09-10 08:48 | Day surgery (SDC) | payer BC ==
[2018-09-10 09:35] VITALS: BP 131/69
[2018-09-10] MEDS ORDERED: XYLOCAINE 1% 20 mL ONE (10:20)
--- NOTE | 2018-09-10 10:42 | Short Stay Summary ---
Short Stay Documentation Date of service: 09/10/18 - History Principal diagnosis: Ascites Past Medical History: hepatitis Past Surgical History: Other (multiple prior paracentesis) Social history: no significant social history - Allergies and Medications Current Medications: Allergies Sulfa (Sulfonamide Antibiotics) Allergy (Intermediate, Verified 12/25/13 09:08) Swelling tetanus toxoid, adsorbed Allergy (Intermediate, Verified 12/25/13 09:08) Rash Home Medications Medication Instructions Recorded Confirmed Last Taken Type Furosemide [Lasix TAB] 40 mg PO QDAY 10/31/15 09/10/18 09/09/18 History 40mg Spironolactone 100 mg PO DAILY 07/27/16 09/10/18 09/09/18 History 100mg Gabapentin [Neurontin] 300 mg PO QHS 06/17/17 09/10/18 09/09/18 History 300mg - Physical exam General appearance: no acute distress Integumentary: no rash, no growths HEENT: Atraumatic Lungs: Normal air movement Breasts: deferred Gastrointestinal: no tenderness, distended Female Genitourinary: deferred Rectal Exam: deferred Neurological: Normal gait, Normal speech - Brief post op/procedure progress note Date of procedure: 09/10/18 Pre-op diagnosis: ascites Post-op diagnosis: same Procedure: US guided paracentesis Anesthesia: local Surgeon: PAULY TORRES Estimated blood loss: none Specimen disposition: to lab Condition: stable - Disposition Condition at discharge: Good Disposition: DC-01 TO HOME OR SELFCARE Short Stay Discharge Plan Activity: advance as tolerated Weight Bearing Status: Weight Bear as Tolerated Diet: regular Wound: keep clean and dry, per your surgeon's advice Follow up with: KARIME FLORES MD [Primary Care Provider] - 7 Days
--- NOTE | 2018-09-10 12:08 | Ultrasound Report ---
Exam: Ultrasound guided paracentesis Clinical indication: Ascites Date: 09/10/2018 Procedure: Following explanation of the risks, benefits and alternatives; written informed this was obtained. The patient was brought to the ultrasound suite and for quadrant ultrasound of the abdomen was performed. A moderate amount of ascites is present. An appropriate access site was chosen in the left lower quadrant. The patient's left lower abdomen was prepped and draped in the usual sterile fashion. 1% lidocaine was used for anesthesia. Under ultrasound guidance, a 5 Peruvian Yueh needle was advanced into the ascitic fluid. An ultrasound image was saved to document the repositioning of the needle. The trocar was removed and a total of 5.7 L of clear yellow ascitic fluid was aspirated. A sample was sent for laboratory analysis. The Yueh needle was removed and hemostasis achieved using manual compression. A sterile dressing was applied. The patient tolerated the procedure well. 2 no immediate post procedure crepitations. Impression: Ultrasound-guided paracentesis with 5.7 L of clear yellow ascitic fluid aspirated, a sample was sent for laboratory analysis.
== END 2018-09-10 11:50 | disposition home or self-care (01) ==
LOC: CATHLABREC 08:48 → EDSTATUS 09:00 → CATHLABREC 11:50
PROVIDERS: ATTEND Family Medicine
DX: K70.31 Alcoholic cirrhosis of liver with ascites (principal); I73.9 Peripheral vascular disease, unspecified; M19.90 Unspecified osteoarthritis, unspecified site; Z72.89 Other problems related to lifestyle; Z98.890 Other specified postprocedural states; Z80.8 Family history of malignant neoplasm of other organs or systems; Z88.2 Allergy status to sulfonamides; Z79.899 Other long term (current) drug therapy; Z96.642 Presence of left artificial hip joint; Z88.8 Allergy status to other drugs, medicaments and biological substances; Z82.49 Family history of ischemic heart disease and other diseases of the circulatory system
CPT/HCPCS: 49083; 87116

== ENCOUNTER 2018-09-24 10:39 | Day surgery (SDC) | payer BC ==
[2018-09-24] MEDS ORDERED: XYLOCAINE 1% 20 mL ONE (12:50)
--- NOTE | 2018-09-24 13:15 | Short Stay Summary ---
Short Stay Documentation Date of service: 09/24/18 - History Principal diagnosis: ascites Past Medical History: hepatitis Past Surgical History: Other (multiple prior paracentesis) Social history: no significant social history - Allergies and Medications Current Medications: Allergies Sulfa (Sulfonamide Antibiotics) Allergy (Intermediate, Verified 12/25/13 09:08) Swelling tetanus toxoid, adsorbed Allergy (Intermediate, Verified 12/25/13 09:08) Rash Home Medications Medication Instructions Recorded Confirmed Last Taken Type Furosemide [Lasix TAB] 40 mg PO QDAY 10/31/15 09/10/18 09/09/18 History 40mg Spironolactone 100 mg PO DAILY 07/27/16 09/10/18 09/09/18 History 100mg Gabapentin [Neurontin] 300 mg PO QHS 06/17/17 09/10/18 09/09/18 History 300mg - Physical exam General appearance: no acute distress Integumentary: no rash, no growths HEENT: Atraumatic Lungs: Normal air movement Breasts: deferred Gastrointestinal: distended Female Genitourinary: deferred Rectal Exam: deferred Neurological: Normal gait, Normal speech - Brief post op/procedure progress note Date of procedure: 09/24/18 Pre-op diagnosis: ascites Post-op diagnosis: same Procedure: US guided paracentesis Anesthesia: local Surgeon: PAULY TORRES Estimated blood loss: none Specimen disposition: to lab Condition: stable - Disposition Condition at discharge: Good Disposition: DC-01 TO HOME OR SELFCARE Short Stay Discharge Plan Activity: advance as tolerated Weight Bearing Status: Weight Bear as Tolerated Diet: regular Wound: keep clean and dry, per your surgeon's advice Follow up with: MILAN IRWIN MD [Primary Care Provider] - 7 Days
[2018-09-24 15:36] VITALS: BP 127/71
--- NOTE | 2018-09-24 15:39 | Ultrasound Report ---
Exam: Ultrasound guided paracentesis Clinical indication: Ascites Date: 09/24/2018 Procedure: Following excavation of the risks, benefits and alternatives; written informed consent was obtained. Patient was brought to the ultrasound suite and placed in supine position on the examination table. Quadrant ultrasound of the abdomen was performed and an appropriate access site was chosen in the right lower quadrant. The patient has a moderate amount of ascites. Under ultrasound guidance, a 5 Upper Sorbian Yueh needle was advanced into the ascitic fluid. An image was saved document placement. The trocar was removed and a total of 6.1 L of clear yellow ascitic fluid was aspirated. A sample was sent for laboratory analysis. The Yueh needle was removed and hemostasis achieved using a compression. A sterile dressing was applied. The patient tolerated the procedure well. There were no immediate post procedure complications. Impression: Ultrasound-guided paracentesis with 6.1 L of clear yellow ascitic fluid aspirated. A sample was sent for laboratory analysis.
== END 2018-09-24 14:05 | disposition home or self-care (01) ==
LOC: CATHLABREC 10:39 → EDSTATUS 12:00 → CATHLABREC 14:05
PROVIDERS: ATTEND Family Medicine
DX: K70.31 Alcoholic cirrhosis of liver with ascites (principal); I10 Essential (primary) hypertension; G62.9 Polyneuropathy, unspecified; M19.90 Unspecified osteoarthritis, unspecified site; Z96.642 Presence of left artificial hip joint; Z72.89 Other problems related to lifestyle; Z98.890 Other specified postprocedural states; Z80.8 Family history of malignant neoplasm of other organs or systems; Z82.61 Family history of arthritis; Z88.2 Allergy status to sulfonamides; Z79.899 Other long term (current) drug therapy; Z84.1 Family history of disorders of kidney and ureter; Z82.49 Family history of ischemic heart disease and other diseases of the circulatory system
CPT/HCPCS: 49083; 87116

== ENCOUNTER 2018-11-05 10:34 | Day surgery (SDC) | payer BC ==
[2018-11-05 11:45] LABS: INR 1.42 (0.87-1.13)
--- NOTE | 2018-11-05 13:01 | Short Stay Summary ---
Short Stay Documentation Date of service: 11/05/18 - History Principal diagnosis: Ascites Past Medical History: hepatitis, liver disease, other (ascites) Past Surgical History: Other (multiple prior paracentesis) Social history: no significant social history - Allergies and Medications Current Medications: Allergies Sulfa (Sulfonamide Antibiotics) Allergy (Intermediate, Verified 12/25/13 09:08) Swelling tetanus toxoid, adsorbed Allergy (Intermediate, Verified 12/25/13 09:08) Rash Home Medications Medication Instructions Recorded Confirmed Last Taken Type Furosemide [Lasix TAB] 40 mg PO QDAY 10/31/15 11/05/18 11/05/18 History Spironolactone 100 mg PO DAILY 07/27/16 11/05/18 11/05/18 History Gabapentin [Neurontin] 300 mg PO QHS 06/17/17 11/05/18 11/05/18 History - Physical exam General appearance: no acute distress Integumentary: no rash HEENT: Atraumatic Lungs: Normal air movement Breasts: deferred Heart: Regular rate Gastrointestinal: no tenderness, distended Female Genitourinary: deferred Rectal Exam: deferred Extremities: Full ROM Neurological: Normal gait, Normal speech - Brief post op/procedure progress note Date of procedure: 11/05/18 Pre-op diagnosis: Ascites Post-op diagnosis: same Procedure: US guided paracentesis Anesthesia: local Surgeon: PAULY TORRES Estimated blood loss: minimal Pathology: none Specimen disposition: to lab Condition: stable - Disposition Condition at discharge: Good Disposition: DC-01 TO HOME OR SELFCARE Short Stay Discharge Plan Activity: advance as tolerated Weight Bearing Status: Weight Bear as Tolerated Diet: regular Wound: keep clean and dry, per your surgeon's advice Follow up with: MILAN IRWIN MD [Primary Care Provider] - 7 Days
[2018-11-05 14:50] VITALS: BP 127/67
--- NOTE | 2018-11-07 13:05 | Ultrasound Report ---
Exam: Ultrasound-guided paracentesis Clinical indication: Ascites Date: 11/05/2018 Procedure: Following an explanation of the risks, benefits and alternatives; written informed consent was obtained. The patient was brought to the ultrasound suite and four quadrant ultrasound of the abdomen was performed. Moderate amount of ascites is identified. An appropriate access site was chosen in the right lower quadrant. The patient's lower abdomen was prepped and draped in the usual sterile fashion. One percent lidocaine was used for anesthesia. Under ultrasound guidance, a 5 Telugu Yueh needle was advanced into the ascitic fluid. An image was saved to document appropriate placement of the needle tip. The trocar was removed. There is prompt return of clear yellow ascitic fluid. A sample was sent for laboratory analysis. The Yueh needle was then connected to a catheter tubing and a total of 4.9 L of clear yellow ascitic fluid was aspirated. Following removal of the fluid, a pursestring suture was applied around the Yueh needle and the Yueh needle withdrawn. The pursestring suture was then tightened. Dermabond was also applied. A sterile dressing was applied. The patient tolerated the procedure well. There were no immediate post procedure complications. Impression: Ultrasound-guided paracentesis with 4.9 L of clear yellow ascitic fluid aspirated. Samples sent for laboratory analysis.
== END 2018-11-05 14:37 | disposition home or self-care (01) ==
LOC: CATHLABREC 10:34 → EDSTATUS 12:00 → CATHLABREC 14:37
PROVIDERS: ATTEND Radiology Diagnostic Radiology
DX: K70.31 Alcoholic cirrhosis of liver with ascites (principal); I10 Essential (primary) hypertension; M19.90 Unspecified osteoarthritis, unspecified site; Z79.899 Other long term (current) drug therapy; Z72.89 Other problems related to lifestyle; Z80.8 Family history of malignant neoplasm of other organs or systems; Z84.1 Family history of disorders of kidney and ureter; Z88.2 Allergy status to sulfonamides; Z88.8 Allergy status to other drugs, medicaments and biological substances; Z96.642 Presence of left artificial hip joint; Z82.69 Family history of other diseases of the musculoskeletal system and connective tissue; Z82.49 Family history of ischemic heart disease and other diseases of the circulatory system
CPT/HCPCS: 36415; 49083; 85610; 87116

== ENCOUNTER 2018-12-03 11:07 | Day surgery (SDC) | payer BC ==
--- NOTE | 2018-12-03 11:43 | Short Stay Summary ---
Short Stay Documentation Date of service: 12/03/18 - History Principal diagnosis: ascites Past Medical History: hepatitis, liver disease Past Surgical History: Other (prior paracenteses) Social history: no significant social history - Allergies and Medications Current Medications: Allergies Sulfa (Sulfonamide Antibiotics) Allergy (Intermediate, Verified 12/25/13 09:08) Swelling tetanus toxoid, adsorbed Allergy (Intermediate, Verified 12/25/13 09:08) Rash Home Medications Medication Instructions Recorded Confirmed Last Taken Type Furosemide [Lasix TAB] 40 mg PO QDAY 10/31/15 12/03/18 12/02/18 History 40mg Spironolactone 100 mg PO DAILY 07/27/16 12/03/18 12/02/18 History 100mg Gabapentin [Neurontin] 300 mg PO BID 06/17/17 12/03/18 12/02/18 History 300mg - Physical exam General appearance: no acute distress Integumentary: no rash, no growths HEENT: Atraumatic Lungs: Normal air movement Breasts: deferred Heart: Regular rate Gastrointestinal: normal, no tenderness, distended Female Genitourinary: deferred Rectal Exam: deferred Neurological: Normal gait, Normal speech - Brief post op/procedure progress note Date of procedure: 12/03/18 Pre-op diagnosis: Ascites Post-op diagnosis: same Procedure: US guided paracentesis Anesthesia: local Surgeon: PAULY TORRES Estimated blood loss: minimal Pathology: none Condition: stable - Disposition Condition at discharge: Good Disposition: DC-01 TO HOME OR SELFCARE Short Stay Discharge Plan Activity: advance as tolerated Weight Bearing Status: Weight Bear as Tolerated Diet: regular Wound: keep clean and dry, per your surgeon's advice Follow up with: MILAN IRWIN MD [Primary Care Provider] - 7 Days
[2018-12-03 13:20] VITALS: BP 121/55
--- NOTE | 2018-12-03 14:39 | Ultrasound Report ---
Exam: Ultrasound a paracentesis Clinical indication: Ascites, hepatitis Date: 12/03/2018 Procedure: Following an explanation of the risks, benefits and alternatives; written informed consent was obtained. The patient was brought to the ultrasound suite and placed in supine position on the stretcher. 4 quadrant ultrasound of the abdomen was performed and an appropriate access site chosen in the right lower quadrant. This right lower quadrant was prepped and draped in usual sterile fashion. 1% lidocaine was used for anesthesia. Under ultrasound guidance, a 5 [place] Yueh needle was advanced into the fluid. An image was saved to document appropriate positioning. A total of 6.0 L of clear yellow ascitic fluid was aspirated. A sample sent to lab for analysis. The Yueh needle was removed and hemostasis achieved using 4-0 Vicryl pursestring suture and Dermabond. A sterile dressing was applied. The patient tolerated the procedure well. There were no immediate post procedure complications. Impression: Ultrasound guided paracentesis with 6.0 L of clear yellow ascitic fluid aspirated. Samples were sent for laboratory analysis
== END 2018-12-03 13:30 | disposition home or self-care (01) ==
LOC: CATHLABREC 11:07 → EDSTATUS 12:00 → CATHLABREC 13:30
PROVIDERS: ATTEND Radiology Diagnostic Radiology
DX: K70.31 Alcoholic cirrhosis of liver with ascites (principal); K75.89 Other specified inflammatory liver diseases; I10 Essential (primary) hypertension; M19.90 Unspecified osteoarthritis, unspecified site; Z82.61 Family history of arthritis; Z83.49 Family history of other endocrine, nutritional and metabolic diseases; Z79.899 Other long term (current) drug therapy; Z98.890 Other specified postprocedural states; Z96.643 Presence of artificial hip joint, bilateral; Z72.89 Other problems related to lifestyle; Z80.8 Family history of malignant neoplasm of other organs or systems; Z82.49 Family history of ischemic heart disease and other diseases of the circulatory system
CPT/HCPCS: 49083; 87116

== ENCOUNTER 2018-12-17 09:09 | Day surgery (SDC) | payer BC ==
[2018-12-17 10:04] LABS: INR 1.53 (0.87-1.13)
[2018-12-17 10:05] LABS: Partial Thromboplastin Time 34.4 Sec. (24.2-36.6)
[2018-12-17] MEDS ORDERED: XYLOCAINE 1% 20 mL ONE (10:44)
--- NOTE | 2018-12-17 11:04 | Short Stay Summary ---
Short Stay Documentation Date of service: 12/17/18 - History Principal diagnosis: Ascites Past Medical History: hepatitis, liver disease Past Surgical History: Other (prior paracentesis) Social history: no significant social history - Allergies and Medications Current Medications: Allergies Sulfa (Sulfonamide Antibiotics) Allergy (Intermediate, Verified 12/25/13 09:08) Swelling tetanus toxoid, adsorbed Allergy (Intermediate, Verified 12/25/13 09:08) Rash Home Medications Medication Instructions Recorded Confirmed Last Taken Type Furosemide [Lasix TAB] 40 mg PO QDAY 10/31/15 12/17/18 12/16/18 History 40mg Spironolactone 200 mg PO DAILY 07/27/16 12/17/18 12/16/18 History 200mg Gabapentin [Neurontin] 300 mg PO HS 06/17/17 12/17/18 12/16/18 History 300mg - Physical exam General appearance: no acute distress HEENT: Atraumatic Lungs: Normal air movement Breasts: deferred Gastrointestinal: no tenderness, distended Female Genitourinary: deferred Rectal Exam: deferred Extremities: Full ROM Neurological: Normal gait, Normal speech - Brief post op/procedure progress note Date of procedure: 12/17/18 Pre-op diagnosis: Ascites Post-op diagnosis: same Procedure: US guided paracentesis Anesthesia: local Surgeon: PAULY TORRES Estimated blood loss: none Specimen disposition: to lab Condition: stable - Disposition Condition at discharge: Good Disposition: DC-01 TO HOME OR SELFCARE Short Stay Discharge Plan Activity: advance as tolerated Weight Bearing Status: Weight Bear as Tolerated Diet: regular Wound: keep clean and dry, per your surgeon's advice Follow up with: MILAN IRWIN MD [Primary Care Provider] - 7 Days
[2018-12-17 11:47] VITALS: BP 121/61
--- NOTE | 2018-12-17 15:51 | Ultrasound Report ---
Exam: Ultrasound guided paracentesis Clinical indication: Ascites Date: 12/17/2018 Procedure: Following an explanation of the risks, benefits and alternatives; written informed consent was obtained. The patient was brought to the ultrasound suite. 4 quadrant ultrasound of the abdomen was performed and a moderate amount of ascites is identified. An appropriate access site was chosen on the right lower quadrant. The patient's right lower quadrant was prepped and draped in the usual sterile fashion. 1% lidocaine was used for anesthesia. Under ultrasound guidance, a 5 [place] Yueh needle was advanced into the ascitic fluid. An image was saved for documentation. The trocar was removed and a total of 6.1 L of clear yellow ascitic fluid was aspirated. A sample was sent for laboratory analysis. The Yueh needle was then removed and hemostasis achieved using manual compression. A sterile dressing was applied. The patient tolerated the procedure well. There were no immediate post procedure complications. Impression: Ultrasound-guided paracentesis was 6.1 L of clear yellow ascitic fluid aspirated. A sample was sent for laboratory analysis.
== END 2018-12-17 12:09 | disposition home or self-care (01) ==
LOC: CATHLABREC 09:09
PROVIDERS: ATTEND Radiology Diagnostic Radiology
DX: K70.31 Alcoholic cirrhosis of liver with ascites (principal); I10 Essential (primary) hypertension; M19.90 Unspecified osteoarthritis, unspecified site; Z88.2 Allergy status to sulfonamides; Z88.8 Allergy status to other drugs, medicaments and biological substances; Z79.899 Other long term (current) drug therapy; Z98.890 Other specified postprocedural states; Z72.89 Other problems related to lifestyle; Z82.61 Family history of arthritis; Z84.1 Family history of disorders of kidney and ureter; Z80.8 Family history of malignant neoplasm of other organs or systems; Z82.49 Family history of ischemic heart disease and other diseases of the circulatory system
CPT/HCPCS: 36415; 49083; 85610; 85730; 87116

== ENCOUNTER 2019-02-26 08:01 | Day surgery (SDC) | payer BC ==
[2019-02-26 08:59] VITALS: BP 109/43
--- NOTE | 2019-02-26 10:08 | Short Stay Summary ---
Short Stay Documentation Date of service: 02/26/19 - History Principal diagnosis: Ascites Past Medical History: hepatitis, liver disease, other (ascites) Past Surgical History: Other (multiple prior paracentesis) Social history: no significant social history - Allergies and Medications Current Medications: Allergies Sulfa (Sulfonamide Antibiotics) Allergy (Intermediate, Verified 12/25/13 09:08) Swelling tetanus toxoid, adsorbed Allergy (Intermediate, Verified 12/25/13 09:08) Rash Home Medications Medication Instructions Recorded Confirmed Last Taken Type Furosemide [Lasix TAB] 40 mg PO TID 10/31/15 02/26/19 02/25/19 History Spironolactone 200 mg PO DAILY 07/27/16 02/26/19 02/25/19 History Gabapentin [Neurontin] 300 mg PO BID 06/17/17 02/26/19 02/25/19 History Nadolol [Corgard] 20 mg PO QDAY 02/26/19 02/26/19 02/25/19 History Omeprazole 20 mg PO QDAY 02/26/19 02/26/19 02/25/19 History - Physical exam General appearance: no acute distress Integumentary: no rash, no growths HEENT: Atraumatic Lungs: Normal air movement Breasts: deferred Gastrointestinal: normal, no distended Female Genitourinary: deferred Rectal Exam: deferred - Brief post op/procedure progress note Date of procedure: 02/26/19 Pre-op diagnosis: ascites Post-op diagnosis: same Procedure: Only minimal ascites/no procedure preformed Surgeon: PAULY TORRES Condition: stable - Disposition Condition at discharge: Good Disposition: DC-01 TO HOME OR SELFCARE Short Stay Discharge Plan Activity: advance as tolerated Weight Bearing Status: Weight Bear as Tolerated Diet: regular Follow up with: MILAN IRWIN MD [Primary Care Provider] - 7 Days
--- NOTE | 2019-03-19 14:27 | Ultrasound Report ---
Exam: Limited ultrasound of the abdomen Clinical indication: Patient with a history of cirrhosis and ascites Date: 02/26/2019 Procedure: Following an examination of the risks, benefits alternatives; written informed consent was obtained for a paracentesis. The patient was brought to the ultrasound suite. 4 quadrant ultrasound of the abdomen was performed in anticipation of paracentesis. Only a minimal amount of ascitic fluid is identified. The patient is only minimally distended. Imaged portions of the liver and small bowel are unremarkable. The procedure was therefore not performed. Impression: Limited ultrasound of the abdomen demonstrated only minimal amount of ascitic fluid, paracentesis was not performed. Imaged portions of the liver and small bowel are unremarkable.
== END 2019-02-26 08:02 | disposition home or self-care (01) ==
LOC: CATHLABREC 08:01 → EDSTATUS 09:00
PROVIDERS: ATTEND Radiology Diagnostic Radiology
DX: K85.90 Acute pancreatitis without necrosis or infection, unspecified (principal); G62.9 Polyneuropathy, unspecified; I10 Essential (primary) hypertension; M19.90 Unspecified osteoarthritis, unspecified site; K70.31 Alcoholic cirrhosis of liver with ascites; Z53.8 Procedure and treatment not carried out for other reasons; Z88.2 Allergy status to sulfonamides; Z88.8 Allergy status to other drugs, medicaments and biological substances; Z79.899 Other long term (current) drug therapy; Z72.89 Other problems related to lifestyle; Z98.890 Other specified postprocedural states; Z80.8 Family history of malignant neoplasm of other organs or systems; Z82.49 Family history of ischemic heart disease and other diseases of the circulatory system
CPT/HCPCS: 76705